=== PATIENT | male | born 1965 | race Caucasian/White ===

== ENCOUNTER 2017-09-30 10:30 | Emergency (ER) | payer OTHER ==
[~2017-09-30] VITALS: Ht 180.3 cm; Wt 86.2 kg
[2017-09-30] MEDS ORDERED: DIOVAN HCT 1601 EACH (10:49)
[2017-09-30] MEDS ORDERED: FORTAMET500 MG (10:50)
[2017-09-30] MEDS ORDERED: LEVAQUIN750 MG PO (15:42)
[2017-09-30] MEDS ORDERED: TOBRADEX EYE DR10 ML OP (15:42)
== END 2017-09-30 15:58 | disposition home or self-care (01) ==
LOC: ER 10:30
DX: H01.005 Unspecified blepharitis left lower eyelid (principal); H01.004 Unspecified blepharitis left upper eyelid

== ENCOUNTER 2021-11-12 02:07 | Emergency (ER) | payer OTHER ==
[~2021-11-12] VITALS: Ht 180.3 cm; Wt 77.1 kg
[~2021-11-12 02:07] MED LIST: DIOVAN HCT 1601 EACH; FORTAMET500 MG; LEVAQUIN750 MG PO; TOBRADEX EYE DR10 ML OP
[2021-11-12] MEDS ORDERED: TAMS0.4C (02:33)
[2021-11-12] MEDS ORDERED: CRESTOR5 MG (02:33)
[2021-11-12] MEDS ORDERED: SYMBICORT 16010.2 GM IH (03:23)
[2021-11-12] MEDS ORDERED: ALBUTEROL2.5 MG/3 M IH (03:23)
[2021-11-12] MEDS ORDERED: ZYNCOF 20-400120 ML PO (03:23)
== END 2021-11-12 03:45 | disposition home or self-care (01) ==
LOC: ER 02:07
DX: J45.901 Unspecified asthma with (acute) exacerbation (principal)